=== PATIENT | male | born 1970 | race Two or more races ===

== ENCOUNTER 2025-01-03 10:04 | Emergency (ER) | payer MEDICAID, OTHER ==
[~2025-01-03] VITALS: Ht 170.2 cm; Wt 81.0 kg
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
[2025-01-03] MEDS: HYDROcodone-ACET 10/325MG TAB PO ONE (11:20)
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
[2025-01-03] MEDS ORDERED: HYDR-4798 PO (11:50)
[2025-01-03 12:25] VITALS: BP 123/94; PULSE 103; RESP 16; TEMP 98.9; O2SAT 96
== END 2025-01-03 12:27 | disposition home or self-care (01) ==
LOC: ER 10:04
DX: S42.001A Fracture of unspecified part of right clavicle, initial encounter for closed fracture (principal); S06.9X1A Unspecified intracranial injury with loss of consciousness of 30 minutes or less, initial encounter; S29.011A Strain of muscle and tendon of front wall of thorax, initial encounter; F15.90 Other stimulant use, unspecified, uncomplicated; V49.88XA Car occupant (driver) (passenger) injured in other specified transport accidents, initial encounter; Y93.89 Activity, other specified; Y92.89 Other specified places as the place of occurrence of the external cause; Y99.8 Other external cause status
CPT/HCPCS: 70450; 71101; 73000